=== PATIENT | male | born 1955 | race Caucasian/White ===

== ENCOUNTER 2016-07-30 03:32 | Emergency (ER) | payer BC ==
[2016-07-30 03:49] VITALS: BP 156/108; PULSE 83; RESP 18; TEMP 97; O2SAT 98
[2016-07-30 04:16] LABS: BASO # 0.1 K/uL (0.0-0.2); BASO % 0.7 % (0.0-2.0); EOS # 0.1 K/uL (0.0-0.7); EOS % 1.2 % (0.0-4.0); HEMATOCRIT 45.7 % (35.0-51.0); LYMPH # 1.6 K/uL (1.0-4.3); LYMPH % 20.5 % (20.0-40.0); MEAN CELL VOLUME 83.5 fl (80.0-94.0); MEAN CORPUSCULAR HEMOGLOBIN 27.6 pg (27.0-31.0); MEAN PLATELET VOLUME 8.7 fl (7.2-11.7); MONO # 0.7 K/uL (0.0-0.8); MONO % 9.4 % (0.0-10.0); NEUT # 5.4 K/uL (1.8-7.0); NEUT % 68.2 % (50.0-75.0); NRBC % 0.1 % (0.0-0.0); RED CELL DISTRIBUTION WIDTH 15.9 % (11.5-14.5)
--- NOTE | 2016-07-30 04:22 | ED PDOC ---
HPI: General Adult Time Seen by Provider: 07/30/16 03:53 Chief Complaint (Nursing): ENT Problem Chief Complaint (Provider): nosebleed History Per: Patient History/Exam Limitations: no limitations Onset/Duration Of Symptoms: Mins Have you had recent travel within the past 21 days to any of the following countries: [place], [place], [place] or [place]?: No Current Symptoms Are (Timing): Still Present Additional Complaint(s): 61yo male with PMHx including vascular surgery on coumadin presents to the ED with c/o nosebleed x 20 minutes [employer]OUN[employer]. Patient states because of sudden cold weather he started using heat and thinks it dried out his nose causing nosebleed. Denies trauma, putting anything in nose, blowing nose, lightheadedness, dizziness, chest pain, SOB. Did not take night time dose of coumadin yet because he takes before going to bed and he was still up. Regimen is 6mg of coumadin for 2 days and then 7.5mg on the third day. All of patient's doctors are in [place]. Past Medical History Reviewed: Historical Data, Nursing Documentation, Vital Signs Vital Signs: Last Vital Signs Temp 97 F L 07/30/16 03:47 Pulse 83 07/30/16 03:47 Resp 18 07/30/16 03:47 BP 156/108 H 07/30/16 03:47 Pulse Ox 98 07/30/16 06:29 - Medical History PMH: Diabetes, HTN - Surgical History Other surgeries: vascular - Family History Family History: States: No Known Family Hx - Home Medications Home Medications: Ambulatory Orders Medication Instructions Recorded Amoxicillin/Clavulanate Pota 1 tab PO BID #14 tab 04/10/15 [Augmentin 875 mg-125 mg] Docusate Sodium [Colace] 100 mg PO BID #30 sgl 04/10/15 Oxycodone HCl/Acetaminophen 1 tab PO Q6 PRN #18 tab 04/10/15 [Percocet 325 mg-5 mg] Warfarin [Coumadin] 04/10/15 Warfarin [Coumadin] 04/10/15 - Allergies Allergies/Adverse Reactions: Allergies Allergy/AdvReac Type Severity Reaction Status Date / Time No Known Allergies Allergy Verified 04/10/15 04:25 Review of Systems ROS Statement: Except As Marked, All Systems Reviewed And Found Negative Constitutional: Positive for: Other (no trauma, no lightheadedness ) ENT: Positive for: Other (nosebleed, did not put anything in nose, no blowing nose ) Cardiovascular: Negative for: Chest Pain Respiratory: Negative for: Shortness of Breath Neurological: Negative for: Dizziness Physical Exam - Reviewed Nursing Documentation Reviewed: Yes Vital Signs Reviewed: Yes - Physical Exam Appears: Positive for: Well, No Acute Distress Head Exam: Positive for: ATRAUMATIC, NORMAL INSPECTION, NORMOCEPHALIC Skin: Positive for: Normal Color, Warm, Dry Eye Exam: Positive for: Normal appearance ENT: Positive for: Other (slight oozing of fresh blood right anterior nare ) Neck: Positive for: Normal, Painless ROM, Supple Cardiovascular/Chest: Positive for: Regular Rate, Rhythm. Negative for: Murmur , Tachycardia Respiratory: Positive for: Normal Breath Sounds. Negative for: Wheezing, Respiratory Distress Gastrointestinal/Abdominal: Positive for: Normal Exam, Bowel Sounds, Soft. Negative for: Tenderness Extremity: Positive for: Normal ROM. Negative for: Deformity, Swelling Neurologic/Psych: Positive for: Alert, Oriented - Laboratory Results Result Diagrams: 07/30/16 04:11 07/30/16 04:11 - ECG O2 Sat by Pulse Oximetry: 98 Pulse Ox Interpretation: Normal (RA) Medical Decision Making Medical Decision Makin: Impression: epistaxis Plan: type and screen BMP, troponin, CBC, PT, PTT reassess 0627: Bleeding has stopped. Gave 2 sprays of valerio-synephrine. Advised f/u w/ ENT. Patient given blood results and patient feels better. Instructed to return if bleeding continues. Scribe Attestation: Documented by Janine Jones acting as a scribe for Durga Harris MD. Provider Scribe Attestation: All medical record entries made by the Scribe were at my direction and personally dictated by me. I have reviewed the chart and agree that the record accurately reflects my personal performance of the history, physical exam, medical decision making, and the department course for this patient. I have also personally directed, reviewed, and agree with the discharge instructions and disposition. Disposition - Clinical Impression Clinical Impression: Epistaxis - Patient ED Disposition Is Patient to be Admitted: No - Disposition Referrals: Richard Mccoy MD [Staff Provider] - Disposition: Routine/Home Disposition Time: 06:29 Condition: STABLE Instructions: Nosebleed (ED) Forms: [facility] ED School/Work Excuse
[2016-07-30 04:24] LABS: BLOOD UREA NITROGEN 21 mg/dl (9-20); CALCIUM 9.1 mg/dL (8.4-10.2); CARBON DIOXIDE 23 mmol/L (22-30); CHLORIDE 105 mmol/L (98-107); GFR AFRICAN-AMERICAN > 60; GLUCOSE,RANDOM 181 mg/dL (75-110); SODIUM 144 mmol/l (132-148)
[2016-07-30 05:48] LABS: PARTIAL THROMBOPLASTIN TIME 31.5 SECONDS (23.3-32.5)
[2016-07-30] MEDS ORDERED: Phenylephrine 0.25% NASAL Spray (15ML) NAS STA (06:03)
[2016-07-30] MEDS ORDERED: Phenylephrine 0.5% Nasal Spray NAS STA (06:05)
== END 2016-07-30 06:58 | disposition home or self-care (01) ==
LOC: H.ER 03:32
DX: R04.0 Epistaxis (principal); E11.9 Type 2 diabetes mellitus without complications; I10 Essential (primary) hypertension; Z79.01 Long term (current) use of anticoagulants

== ENCOUNTER 2018-05-27 23:32 | Emergency (ER) | payer BC ==
[2018-05-27 23:40] VITALS: RESP 18; TEMP 98.4; O2SAT 96
[2018-05-28 00:47] LABS: INR 2.3; PROTHROMBIN TIME 26.3 Seconds (9.8-13.1)
[2018-05-28 00:49] LABS: PARTIAL THROMBOPLASTIN TIME 41.6 Seconds (25.6-37.1)
[2018-05-28 00:53] LABS: BASO # 0.1 K/uL (0.0-0.2); EOS # 0.1 K/uL (0.0-0.7); EOS % 1.2 % (0.0-4.0); LYMPH # 1.5 K/uL (1.0-4.3); LYMPH % 22.8 % (20.0-40.0); MEAN CELL VOLUME 78.9 fl (80.0-94.0); MEAN CORPUSCULAR HEMOGLOBIN 25.8 pg (27.0-31.0); MEAN CORPUSCULAR HGB CONC 32.7 g/dL (33.0-37.0); MEAN PLATELET VOLUME 9.3 fl (7.2-11.7); MONO # 0.7 K/uL (0.0-0.8); MONO % 10.1 % (0.0-10.0); NEUT # 4.4 K/uL (1.8-7.0); NEUT % 64.9 % (50.0-75.0); RBC 5.41 Mil/uL (4.40-5.90); RED CELL DISTRIBUTION WIDTH 19.7 % (11.5-14.5); WHITE BLOOD COUNT 6.7 K/uL (4.8-10.8)
[2018-05-28 01:04] LABS: BLOOD UREA NITROGEN 19 mg/dl (9-20); CALCIUM 9.6 mg/dL (8.4-10.2); GFR NON-AFRICAN AMERICAN > 60
[2018-05-28 01:09] VITALS: PULSE 58
--- NOTE | 2018-05-28 01:15 | ED PDOC ---
HPI: Hypertension/Hypotension Time Seen by Provider: 05/27/18 23:45 Chief Complaint (Nursing): High Blood Pressure Chief Complaint (Provider): High Blood Pressure History Per: Patient History/Exam Limitations: no limitations Onset/Duration Of Symptoms: Days Current Symptoms Are (Timing): Still Present Associated Symptoms: Dizziness, Headache Additional Complaint(s): 62 y/o male with a PMHx of HTN and radial artery stenosis presents to the ED for evaluation of elevated blood pressure. Patient reports his blood pressure medications were changed recently and he was taken off of Novatec for headaches. Patient states he is currently on metoprolol and liniopril/hydrochlorothiazide as well as Clonidine 0.2 mg BID. Patient reports of developing a headache and dizziness earlier today. Patient describes headache as on and off, throbbing and is not thunder-clap at onset. Patient additionally reports of checking his blood pressure at [facility] and noted it was elevated thus prompting today's visit. Otherwise, patient denies chest pain, shortness of breath and palpitations. PMD: unknown Past Medical History Reviewed: Historical Data, Nursing Documentation, Vital Signs Vital Signs: Last Vital Signs Temp 98.4 F 05/27/18 23:35 Pulse 58 L 05/28/18 01:08 Resp 18 05/27/18 23:35 BP 154/99 H 05/28/18 01:08 Pulse Ox 96 05/27/18 23:35 - Medical History PMH: Diabetes, HTN - Surgical History Surgical History: No Surg Hx - Family History Family History: States: Unknown Family Hx - Home Medications Home Medications: Ambulatory Orders Medication Instructions Recorded Amoxicillin/Clavulanate Pota 1 tab PO BID #14 tab 04/10/15 [Augmentin 875 mg-125 mg] Docusate Sodium [Colace] 100 mg PO BID #30 sgl 04/10/15 Oxycodone HCl/Acetaminophen 1 tab PO Q6 PRN #18 tab 04/10/15 [Percocet 325 mg-5 mg] Warfarin [Coumadin] 04/10/15 Warfarin [Coumadin] 04/10/15 - Allergies Allergies/Adverse Reactions: Allergies Allergy/AdvReac Type Severity Reaction Status Date / Time No Known Allergies Allergy Verified 05/27/18 23:35 Review of Systems ROS Statement: Except As Marked, All Systems Reviewed And Found Negative Constitutional: Positive for: Other (High Blood Pressure) Neurological: Positive for: Headache, Dizziness Physical Exam - Reviewed Nursing Documentation Reviewed: Yes Vital Signs Reviewed: Yes - Physical Exam Appears: Positive for: No Acute Distress Head Exam: Positive for: ATRAUMATIC, NORMOCEPHALIC Skin: Positive for: Normal Color, Warm, Dry Eye Exam: Positive for: Normal appearance, EOMI, PERRL Neck: Positive for: Normal, Painless ROM, Supple Cardiovascular/Chest: Positive for: Regular Rate, Rhythm. Negative for: Murmur Respiratory: Positive for: Normal Breath Sounds. Negative for: Respiratory Distress Gastrointestinal/Abdominal: Positive for: Normal Exam, Soft. Negative for: Tenderness Back: Positive for: Normal Inspection. Negative for: L CVA Tenderness, R CVA Tenderness Extremity: Positive for: Normal ROM. Negative for: Deformity Neurologic/Psych: Positive for: Alert, Oriented. Negative for: Motor/Sensory Deficits - Laboratory Results Result Diagrams: 05/28/18 00:15 05/28/18 00:15 Lab Results: PT 26.3 Seconds (9.8-13.1) H 05/28/18 00:15 INR 2.3 05/28/18 00:15 APTT 41.6 Seconds (25.6-37.1) H 05/28/18 00:15 - ECG O2 Sat by Pulse Oximetry: 96 (RA) Pulse Ox Interpretation: Normal Medical Decision Making Medical Decision Making: Time: 0016 A/P: Patient with difficult to control blood pressure presenting with a headache. -- Will check head CT to rule out intracrainial bleed. -- Will give clonidine for elevated blood pressure -- CT Head w/o Contrast -- BMP -- Troponin I -- CBC with differentials -- PTT -- Prothrombin time -- Clonidine 0.2 mg PO -- Sack Sorter Time: 014 CT HEAD RESULTS TECHNIQUE: Axial and reformatted sagittal and coronal images of the brain obtained without IV contrast administration. Normal size of the ventricles and extra-axial spaces for the patient's age. Normal white matter tracts of the supratentorial brain. Normal basal ganglia and thalami. Normal brainstem. Normal cerebellum. There is no demonstrated extra-axial, intraparenchymal, or intraventricular hemorrhage. There are no findings of an acute ischemic infarction. Normal calvarium. There is no demonstrated fracture. Normal soft tissue structures. Normal visualized paranasal sinuses. IMPRESSION: Normal unenhanced CT scan of the brain. Electronically signed on May 28, 2018 1:41:24 AM EST by: Bill Jacobo M.D., Certified by [facility], Neuroradiology Time: 4 -- On re-evaluation, patient reports of feeling much better. Patient is stable for discharge home. 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 Very well appearing upon discharge. Scribe Attestation: Documented by Koki Jenkins, acting as a scribe for Durga Harris MD. Provider Scribe Attestation: All medical record entries made by the Scribe were at my direction and personally dictated by me. I have reviewed the chart and agree that the record accurately reflects my personal performance of the history, physical exam, medical decision making, and the department course for this patient. I have also personally directed, reviewed, and agree with the discharge instructions and disposition. Disposition - Clinical Impression Clinical Impression: Hypertension - Patient ED Disposition Is Patient to be Admitted: No Counseled Patient/Family Regarding: Studies Performed, Diagnosis, Need For Followup - Disposition Referrals: Justen Allison [Outside] Disposition: Routine/Home Disposition Time: 03:04 Condition: STABLE Instructions: High Blood Pressure in Adults Forms: Justen Chopra ([employer])
[2018-05-28 02:38] VITALS: BP 149/95
--- NOTE | 2018-05-28 07:57 | CT ---
Date of service: 05/28/2018 PROCEDURE: CT HEAD WITHOUT CONTRAST. HISTORY: headache, elevated BP COMPARISON: None available. TECHNIQUE: Axial computed tomography images were obtained through the head/brain without intravenous contrast. Radiation dose: Total exam DLP = 817.17 mGy-cm. This CT exam was performed using one or more of the following dose reduction techniques: Automated exposure control, adjustment of the mA and/or kV according to patient size, and/or use of iterative reconstruction technique. FINDINGS: HEMORRHAGE: No intracranial hemorrhage. BRAIN: No mass effect or edema. No atrophy or chronic microvascular ischemic changes. VENTRICLES: Unremarkable. No hydrocephalus. CALVARIUM: Unremarkable. PARANASAL SINUSES: Unremarkable as visualized. No significant inflammatory changes. MASTOID AIR CELLS: Unremarkable as visualized. No inflammatory changes. OTHER FINDINGS: None. IMPRESSION: Normal CT of the Head.
== END 2018-05-28 03:31 | disposition home or self-care (01) ==
LOC: H.ER 23:32
DX: I10 Essential (primary) hypertension (principal); E11.9 Type 2 diabetes mellitus without complications; Z79.01 Long term (current) use of anticoagulants